=== PATIENT | female | born 1940 | race Caucasian/White ===

== ENCOUNTER 2017-07-08 07:30 | Day surgery (SDC) | payer MEDICARE, OTHER ==
[2017-07-07 15:33] VITALS: BMI 25.1
[2017-07-08 07:56] LABS: #Eosinphils 0.2 thou/uL (0.0-0.7); #Lymphocytes 1.2 thou/uL (1.20-3.40); #Monocytes 0.5 thou/uL (0.11-0.59); #Neutrophils 2.7 thou/uL (1.40-6.50); %Basophils 0.4 % (0.0-1.0); %Eosinophils 5.2 % (0.0-10.0); %Lymphocytes 25.2 % (21.0-51.0); %Monocytes 10.8 % (0.0-10.0); %Neutrophils 58.5 % (42.0-75.0); Hemoglobin 11.2 g/dL (12.0-16.0); Mean Corpuscular Hemoglobin 29.6 pg (27.0-31.0); Mean Corpuscular Volume 89.7 fl (81.0-99.0); Mean Platelet Volume 7.3 fL (7.4-10.4); Platelet Count 126 thou/uL (130-400); RBC Distribution Width 14.7 % (11.5-14.5); Red Blood Cell (RBC) Count 3.79 mill/uL (4.20-5.40); White Blood Cell (WBC) Count 4.6 thou/uL (4.8-10.8)
[2017-07-08 08:01] LABS: INR-International Normal Ratio 1.1; Prothrombin Time 14.1 SEC (12.0-14.7)
[2017-07-08 08:02] LABS: PTT 34.9 SEC (22.9-36.1)
[2017-07-08 08:46] VITALS: BP 138/64; TEMP 98.2
[2017-07-08] MEDS ORDERED: Midazolam HCl 2 mg/2 ml Vial ONE (08:51)
[2017-07-08] MEDS ORDERED: Fentanyl 100 MCG/2 ML VIAL ONE (08:51)
[2017-07-08] MEDS ORDERED: Sodium Bicarbonate 2.4 MEQ/5 ML ONE (08:51)
--- NOTE | 2017-07-08 14:16 | ULT ---
ULTRASOUND GUIDED RANDOM LIVER BIOPSY: Date: 07/08/17 HISTORY: Cirrhosis. COMPARISON: None. FINDINGS: Technically successful random liver biopsy with ultrasound guidance. One 3.3 cm 18 gauge core biopsy sample was obtained and placed directly in Formalin. TECHNIQUE: Consent obtained to perform an ultrasound guided random liver biopsy. Patient's liver was evaluated. Left lower hepatic lobe was deemed appropriate. Skin was prepped and draped in the sterile fashion. 1 % lidocaine, buffered with sodium bicarbonate, was used for local anesthesia. Under ultrasound guidan ce, an 18 gauge metallic biopsy needle was advanced in the left hepatic lobe. A single 3.3 cm core wa s obtained. Core was placed directly in Formalin. The patient tolerated the procedure well. No immedi ate or postprocedure complications. Post biopsy images do not demonstrate significant perihepatic hem atoma. IMPRESSION: Successful random liver biopsy. Final pathologic diagnosis is pending. POS: SUSAN
== END 2017-07-08 11:00 | disposition home or self-care (01) ==
LOC: ULT 07:30
PROVIDERS: ATTEND Internal Medicine Gastroenterology
PROC: 0FB23ZX Excision of Left Lobe Liver, Percutaneous Approach, Diagnostic (ICD-10-PCS; principal; 2017-07-08)
DX: K74.60 Unspecified cirrhosis of liver (principal); D64.9 Anemia, unspecified; Z88.0 Allergy status to penicillin; Z79.84 Long term (current) use of oral hypoglycemic drugs; Z79.899 Other long term (current) drug therapy
CPT/HCPCS: 36415; 47000; 76942; 85025; 85610; 85730; 88307; 88313; 99152; 99153; J2250; J3010

== ENCOUNTER 2020-01-04 08:59 | Outpatient (CLI) | payer MEDICARE, OTHER ==
--- NOTE | 2020-01-04 09:58 | ULT ---
HEPATIC ULTRASOUND WITH COLOR AND SPECTRAL DOPPLER IMAGING: HISTORY: Hepatic encephalopathy, biliary cirrhosis. FINDINGS: Slightly coarse heterogeneous liver echogenicity, evidence for nonspecific hepatic parenchymal proces s. Gallbladder demonstrates no evidence of gallstones, wall thickening, or other acute process. The common bile duct is not dilated. The spleen appears unremarkable. Visualized pancreas is unremarka ble. The right kidney is unremarkable. Hepatic and portal venous flow is antegrade. IMPRESSION: Somewhat coarse heterogeneous liver echogenicity. Antegrade hepatic and portal venous flow. POS: RRE
== END 2020-01-04 09:00 | disposition home or self-care (01) ==
LOC: BICULT 08:59
PROVIDERS: ATTEND Physician Assistant Medical
DX: K74.5 Biliary cirrhosis, unspecified (principal); K72.90 Hepatic failure, unspecified without coma; K76.89 Other specified diseases of liver
CPT/HCPCS: 76705

== ENCOUNTER 2021-11-20 09:28 | Outpatient (CLI) | payer MEDICARE, OTHER | END 2021-11-20 09:29 | disposition home or self-care (01) | LOC: BICMAMMO 09:28 | PROVIDERS: ATTEND Physician Assistant Medical | DX: Z12.31 Encounter for screening mammogram for malignant neoplasm of breast (principal); Z13.820 Encounter for screening for osteoporosis; K74.3 Primary biliary cirrhosis | CPT/HCPCS: 76705; 77063; 77067; 77080 ==

== ENCOUNTER 2022-08-10 10:04 | Outpatient (CLI) | payer OTHER | END 2022-08-10 10:05 | disposition home or self-care (01) | LOC: BICULT 10:04 | PROVIDERS: ATTEND Internal Medicine Gastroenterology | DX: K74.5 Biliary cirrhosis, unspecified (principal); K72.90 Hepatic failure, unspecified without coma; K74.3 Primary biliary cirrhosis; Z86.010 Personal history of colon polyps | CPT/HCPCS: 76705 ==

== ENCOUNTER 2023-05-20 09:46 | Outpatient (CLI) | payer OTHER | END 2023-05-20 09:47 | disposition home or self-care (01) | LOC: ULT 09:46 | PROVIDERS: ATTEND Internal Medicine Gastroenterology | DX: K74.5 Biliary cirrhosis, unspecified (principal); K72.90 Hepatic failure, unspecified without coma; K74.60 Unspecified cirrhosis of liver; R60.0 Localized edema | CPT/HCPCS: 76705 ==